=== PATIENT | female | born 1970 | race Caucasian/White ===

== ENCOUNTER 2025-08-01 15:17 | Outpatient (CLI) | payer OTHER, SELFPAY ==
--- NOTE | ~2025-08-01 | MR_ITS ---
EXAMINATION: MR brain/brain stem wo con DATE: 08/01/2025 16:15 INDICATION: Headache. Variant migraine. TECHNIQUE: Magnetic resonance imaging (MRI) of the brain and brainstem was performed without intravenous contrast. COMPARISON: None. FINDINGS: There are scattered areas of nonspecific increased T2-weighted signal intensity in the cerebral white matter, which is within normal limits for the patient's age. There is no intracranial hemorrhage, acute infarction, or abnormal intracranial mass lesion. The ventricles are normal in size. There is mild mucosal thickening in the ethmoid sinuses. The orbits are normal. The mastoid air cells are normal. IMPRESSION: 1. Normal aging brain. Reviewed, dictated and finalized at location E. EACH WORKER IMPRESSION: 1. Normal aging brain.
== END 2025-08-01 15:18 | disposition home or self-care (01) ==
DX: G43.809 Other migraine, not intractable, without status migrainosus (principal)
CPT/HCPCS: 70551